=== PATIENT | male | born 1955 | race Caucasian/White ===

== ENCOUNTER 2018-12-12 08:45 | Day surgery (SDC) | payer OTHER, SELFPAY ==
[2018-12-12 09:31] VITALS: BP 155/92; PULSE 95; RESP 15; TEMP 36.8; O2SAT 97; BMI 34.2
[2018-12-12] MEDS: SODIUM CHLORIDE 0.9% 1,000 ML 200 ML IV (09:40)
--- NOTE | 2018-12-12 11:26 | PM.HP.1 ---
History of Present Illness Date Patient Seen: 12/12/18 Time Patient Seen: 11:26 Chief complaint: [id number] SCREENING COLONOSCOPY Narrative: Patient is a gentleman here for screening colonoscopy. His last exam was 5 years ago. He had polyps removed at that time. No history in the family of colon cancer. Patient History Medical History (Updated 12/12/18 @ 11:27 by Elliott Dietrich MD) Elevated cholesterol (Chronic) Essential hypertension with goal blood pressure less than 130/85 (Chronic) Surgical History (Updated 12/12/18 @ 11:27 by Elliott Dietrich MD) Hx laparoscopic cholecystectomy (Resolved) Social History household members: spouse Family & Social History Social History: household members spouse Tobacco & Substance use: Does not smoke and never did Meds Home Medications Medication Instructions Recorded Confirmed Type Aspir-Low 81 mg DAILY 12/12/18 12/12/18 History allopurinol 300 mg DAILY 12/12/18 12/12/18 History atorvastatin 10 mg DAILY 12/12/18 12/12/18 History cetirizine 5 mg PO DAILY 12/12/18 12/12/18 History lisinopril 5 mg DAILY 12/12/18 12/12/18 History Allergies Allergy/AdvReac Type Severity Reaction Status Date / Time shellfish derived Allergy Severe Anaphylaxis Verified 12/12/18 09:17 Sulfa (Sulfonamide AdvReac Mild Hives Verified 12/12/18 09:15 Antibiotics) Review of Systems Review of Systems All systems reviewed & are unremarkable except as noted in HPI and below Constitutional Comments: History of gout. One attack in the distant past Cardiovascular Comments: History of a heart murmur from childhood Exam Vital Signs (past 8 hours): - 12/12/18 09:31 Temperature 98.3 F Pulse Rate 95 H Respiratory Rate 15 Blood Pressure 155/92 H Pulse Oximetry 97 Oxygen Delivery Method Room Air Narrative Exam Narrative: Co Operative a pleasant gentleman in no apparent distress. The neck is supple. Lungs are clear to auscultation without rales or rhonchi. Heart regular rate and rhythm. I do not appreciate a murmur gallop. His abdomen is protuberant soft nontender without mass. He is alert and oriented x3. Assessment & Plan Assessment & Plan narrative: The patient for a screening colonoscopy. I have discussed the procedure with them. Risks of bleeding, perforation which would necessitate major operation, failure to find remove all lesions, the potential tattoo were all discussed. All questions were answered. They wished to proceed.
--- NOTE | 2018-12-12 11:29 | PM.PREOP ---
Pre-operative Note Interval Note History & Physical reviewed/Exam performed by Physician: Yes Changes to H&P: No ASA Class (for procedural sedation): II
[2018-12-12] MEDS: MIDAZOLAM 5 MG/5 ML VIAL IV (11:37)
[2018-12-12] MEDS: fentaNYL 250 MCG/5 ML INJ IV (11:38)
--- NOTE | 2018-12-12 12:17 | PM.OP.ENDO ---
Operative Date/Time/Diagnoses Date of procedure: 12/12/18 Time of procedure: 12:17 Pre-op diagnosis: History of polyps. Last exam 5 years ago. Post-op diagnosis: same (Sigmoid diverticulosis. Large soft prostate) Procedure & Clinicians Study performed: Colonoscopy Same procedure as scheduled: Yes Indications: Screening Surgeon: Elliott Dietrich Procedure Notes SCOAP/Timeout: Performed Procedure in detail: The patient was placed in the left lateral decubitus position and underwent IV sedation directed by the surgeon consisting of fentanyl and Versed. Digital exam was remarkable for a large soft prostate. The scope was inserted and advanced through the rectum into the sigmoid, descending, transverse, and ascending colon. Patient was noted to have sigmoid diverticulosis.. The cecum was reached identified by the ileocecal valve and the appendiceal opening. The scope was gradually brought out. As we came through the left colon there was a noticeable lack of haustra. No Polyps were found. The scope ultimately was retroflexed in the rectum. The appearance was otherwise normal. The scope was removed and the patient tolerated the procedure well. the prep was good. Scope withdrawal time: 15 minutes Sedation minutes: 38 Findings: diverticulosis (Sigmoid) and other findings (Enlarged prostate) Specimen(s): none sent Complications: none Recommendations: Colonscopy in 5 years Follow up: as needed Disposition: PACU
[2018-12-12 12:20] VITALS: BP 112/76; PULSE 80; RESP 16; TEMP 36.6; O2SAT 96
[2018-12-12 12:25] VITALS: BP 107/73; PULSE 78; RESP 14; O2SAT 95
[2018-12-12 12:30] VITALS: BP 112/69; PULSE 80; RESP 12; O2SAT 96
[2018-12-12 12:38] VITALS: BP 113/74; PULSE 85; RESP 12; TEMP 36.9; O2SAT 94
[2018-12-12 12:48] VITALS: BP 117/79; PULSE 78; RESP 15; TEMP 36.4; O2SAT 95
--- NOTE | 2018-12-12 13:00 | SUR.PHASEII ---
brought in, d/c instructions discussed, both voiced an understanding. pt dressed with assist from and left when ready and in stable condition.
== END 2018-12-12 13:01 | disposition home or self-care (01) ==
PROVIDERS: PCP Internal Medicine; Visit Provider Specialist
PROC: 0DJD8ZZ Inspection of Lower Intestinal Tract, Via Natural or Artificial Opening Endoscopic (ICD-10-PCS; CPT 45378; principal; 2018-12-12 10:45)
DX: Z86.010 Personal history of colon polyps (principal); K57.30 Diverticulosis of large intestine without perforation or abscess without bleeding; N40.0 Benign prostatic hyperplasia without lower urinary tract symptoms; E78.00 Pure hypercholesterolemia, unspecified; I10 Essential (primary) hypertension
CPT/HCPCS: 45378; 99152; 99153; J2250; J3010

== ENCOUNTER → 2019-06-26 09:15 | Outpatient (CLI) | payer MEDICARE, OTHER, SELFPAY ==
--- NOTE | 2019-06-26 | DI.CT.S_ITS ---
PROCEDURE: CT SINUS SCREEN WO CON INDICATIONS: Chronic sinusitis, unspecified TECHNIQUE: Noncontrast 3.0 mm axial images acquired from the frontal sinuses to the mid-sella, with coronal and sagittal reformats. For radiation dose reduction, the following was used: automated exposure control, adjustment of mA and/or kV according to patient size. COMPARISON: None. FINDINGS: Image quality: Excellent. Maxillary Sinuses: No bony remodeling or destruction. Sinuses are clear. Ethmoid Air Cells: No bony remodeling or destruction. Sinuses are clear. Sphenoid Sinuses: No bony remodeling or destruction. Sinuses are clear. Frontal Sinuses: No bony remodeling or destruction. Sinuses are clear. Ostiomeatal Complexes: Ostiomeatal complexes are patent. No Ivy cells. Miscellaneous: Visualized intra-orbital contents are normal. No faizan bullosa or paradoxical turbinate curvature. There is mild leftward nasal septal deviation. IMPRESSION: No significant active paranasal sinus disease is seen. Mild leftward nasal septal deviation. Dictated by: Benson Sigala M.D. on 06/26/2019 at 9:23 Approved by: Benson Sigala M.D. on 06/26/2019 at 9:25
== END ==
PROVIDERS: PCP Internal Medicine; Visit Provider Internal Medicine
DX: J32.9 Chronic sinusitis, unspecified (principal); J34.2 Deviated nasal septum
CPT/HCPCS: 70486

== ENCOUNTER → 2020-01-30 10:59 | Outpatient (CLI) | payer MEDICARE, OTHER, SELFPAY ==
[2020-01-30 12:21] LABS: Alanine Aminotransferase 52 IU/L (<50); Albumin Globulin Ratio 2.1 (1.0-2.8); Alkaline Phosphatase 64 U/L (38-126); Aspartate Aminotransferase 40 IU/L (17-59); BUN Creatinine Ratio 14.7 (6-22); Bilirubin Total 0.7 mg/dL (0.2-1.3); Blood Urea Nitrogen 10 mg/dL (9-20); Calcium 10.5 mg/dL (8.4-10.2); Carbon Dioxide 29 mmol/L (22-32); Chloride 102 mmol/L (98-107); Cholesterol 152 mg/dL (140-199); Estimated Glomerular Filt Rate > 60.0 mL/min (>60); Globulin 2.4 g/dL (1.7-4.1); Glucose 97 mg/dL (80-110); HDL Cholesterol 44 mg/dL (40-60); HEMOLYSIS < 15 (0-50); LDL Cholesterol Calculated 67 mg/dL (<100); Sodium 139 mmol/L (137-145); Total Protein 7.4 g/dL (6.3-8.2); Triglycerides 203 mg/dL (35-150); Uric Acid 3.8 mg/dL (3.5-8.5)
[2020-01-30 12:22] LABS: Potassium 5.4 mmol/L (3.4-5.1)
== END ==
PROVIDERS: PCP Internal Medicine; Referring Provider Internal Medicine; Visit Provider Internal Medicine
DX: Z12.5 Encounter for screening for malignant neoplasm of prostate (principal); I10 Essential (primary) hypertension; E78.5 Hyperlipidemia, unspecified; M1A.40X0 Other secondary chronic gout, unspecified site, without tophus (tophi)
CPT/HCPCS: 36415; 80053; 80061; 84153; 84154; 84550

== ENCOUNTER 2024-01-17 07:07 | Day surgery (SDC) | payer MEDICARE, SELFPAY ==
[2024-01-17 07:55] VITALS: BP 152/85; PULSE 83; RESP 17; TEMP 36.5; O2SAT 96
[2024-01-17] MEDS: LACTATED RINGERS 1,000 ML 42 ML IV (08:03)
--- NOTE | 2024-01-17 08:12 | PM.HP.1 ---
History of Present Illness History of Present Illness Date Patient Seen: 01/17/24 Time Patient Seen: 08:12 Chief complaint: Screening Colonoscopy Narrative: Rylan is a 68-year-old man here for screening colonoscopy. Personal history of colonic polyps and diverticulosis. Last colonoscopy 5 years ago. No family history of intestinal malignancy first-degree relatives. No abdominal concerns today. [facility] Medical History Elevated cholesterol Essential hypertension with goal blood pressure less than 130/85 Surgical History Hx laparoscopic cholecystectomy Social History household members: spouse Smoking Status: Never smoker alcohol intake: current Meds Home Medications and Allergies Home Medications Medication Instructions Recorded Confirmed Type cetirizine 10 mg tablet 5 mg PO DAILY 12/12/18 01/17/24 History lisinopril 5 mg DAILY 12/12/18 12/13/18 History allopurinol 300 mg tablet 300 mg PO DAILY 01/17/24 01/17/24 History atorvastatin 10 mg tablet 10 mg PO DAILY 01/17/24 01/17/24 History cholecalciferol (vitamin D3) 25 25 mcg PO DAILY 01/17/24 01/17/24 History mcg (1,000 unit) chewable tablet (Vitamin D3) lisinopril 5 mg tablet 5 mg PO DAILY 01/17/24 01/17/24 History melatonin 3 mg tablet 3 mg PO BEDTIME PRN Insomnia 01/17/24 01/17/24 History multivitamin 1 tab PO DAILY 01/17/24 01/17/24 History turmeric 400 mg capsule 500 mg PO DAILY 01/17/24 01/17/24 History Allergies Allergy/AdvReac Type Severity Reaction Status Date / Time shellfish derived Allergy Severe Anaphylaxis Verified 12/13/18 13:11 fentanyl AdvReac Intermediate Severe Verified 12/13/18 17:47 nausea lasting over 24 hours Sulfa (Sulfonamide AdvReac Mild Hives Verified 12/13/18 13:11 Antibiotics) Exam Vital Signs (past 8 hours): - 01/17/24 07:55 Temperature 97.7 F Pulse Rate 83 Respiratory Rate 17 Blood Pressure 152/85 H Pulse Oximetry 96 Oxygen Delivery Method Room Air Oxygen Delivery Method Room Air Narrative Exam Narrative: General adult man alert oriented no acute distress Chest nonlabored respiration Extremities warm well perfused Assessment & Plan Assessment & Plan narrative: The patient requires colorectal screening and colonoscopy is recommended. Technical details were discussed. Risks, benefits, alternatives explained. Risks including but not limited to myocardial infarction, aspiration, bleeding, pain, missed lesion, incomplete examination, need for further radiographic studies, intestinal injury, and need for major abdominal surgery were discussed. All questions were answered to their satisfaction, and they are in agreement with this plan.
[2024-01-17 08:40] VITALS: BP 123/80; PULSE 70; RESP 20; TEMP 36.5; O2SAT 96
[2024-01-17 08:45] VITALS: BP 105/57; PULSE 73; RESP 16; O2SAT 96
[2024-01-17 08:50] VITALS: BP 111/79; PULSE 69; RESP 15; O2SAT 94
[2024-01-17 09:00] VITALS: BP 120/77; PULSE 63; RESP 20; O2SAT 95
--- NOTE | 2024-01-17 09:12 | P.OP.COLON_ITS ---
Operative Date/Time/Diagnoses Date of procedure: 01/17/24 Time of procedure: 09:12 Pre-op diagnosis: Personal history of colonic Procedure & Clinicians Study performed: Screening colonoscopy Same procedure as scheduled: Yes Indications: Personal history of colonic Surgeon: Gerardo Tsang Procedure Notes Procedure in detail: The history and physical was performed/updated and the patient is ASA class is 2. The procedure was discussed in detail with the patient. Potential risks complications including infection, bleeding, missed diagnosis, perforation, need for surgery, and were explained. Their questions were answered and informed consent was obtained. Patient was brought to the procedure room and placed standard monitoring equipment. The patient's vital signs were monitored continuously throughout the entire procedure. Prior to starting time-out was performed. The patient was placed in the left lateral recumbent position. Procedural sedation was administered by anesthesia. Examination began with a thorough inspection of the perianal area there was no evidence of fissures, fistulae, external hemorrhoids or cutaneous malignancy. The colonoscopy scope was then placed into the anal canal and was advanced to the cecum, which was identified by the ileocecal valve, the appendiceal orifice and the confluence of the taenia. The scope was then slowly withdrawn examining colon thoroughly in all directions, irrigating it of any residual stool. The scope was retroflexed within the rectum The patient tolerated the procedure well. They will be discharged once criteria are met. The prep was of good/excellent quality. The withdrawl time was 7 minutes. FINDINGS * No polyps * Sigmoid diverticulosis Specimen(s): none sent Impression: Diverticulosis Post-procedure Recommendations: Colonoscopy in 5 years and High fiber diet Disposition: same day surgery
== END 2024-01-17 09:15 | disposition home or self-care (01) ==
PROVIDERS: PCP Internal Medicine; Referring Provider Surgery; Visit Provider Surgery
PROC: 0DJD8ZZ Inspection of Lower Intestinal Tract, Via Natural or Artificial Opening Endoscopic (ICD-10-PCS; CPT 45378; principal; 2024-01-17 08:15)
DX: Z12.11 Encounter for screening for malignant neoplasm of colon (principal); Z86.010 Personal history of colon polyps; K57.30 Diverticulosis of large intestine without perforation or abscess without bleeding
CPT/HCPCS: G0105; J2704

== ENCOUNTER → 2024-02-25 11:19 | Outpatient (CLI) | payer MEDICARE, SELFPAY ==
[2024-02-25 12:06] LABS: Influenza A - CEPHEID Flu A NEGATIVE (NEGATIVE); Influenza B - CEPHEID Flu B NEGATIVE (NEGATIVE); Respiratory Syncytial Virus Negative (Negative)
[2024-02-25 12:09] LABS: COVID-19 CEPHEID 4-PLEX PCR Negative (Negative)
== END ==
PROVIDERS: PCP Internal Medicine; Visit Provider Physician Assistant
DX: R05.1 Acute cough (principal)
CPT/HCPCS: 0241U

== ENCOUNTER → 2024-09-25 13:27 | Outpatient (CLI) | payer MEDICARE, SELFPAY ==
--- NOTE | 2024-09-25 13:29 | DI.MRI.S_ITS ---
PROCEDURE: MR FEMUR RT WO CON INDICATIONS: RT HAMSTRING INJURY,SEQUELA TECHNIQUE: Noncontrast coronal and sagittal T1 spin echo and STIR; axial T1 spin echo and T2 fast spin echo with fat saturation through the right femur. COMPARISON: None. FINDINGS: Image quality: Excellent. Bones: No acute trabecular bone injury or fracture. High-grade cartilage loss is seen in the superior right hip with subchondral cystic changes and edema and a small right hip effusion. No suspicious intraosseous lesion. Soft tissues: Chronic low-grade partial intrasubstance tearing of the right hamstring tendons at the origin superimposed on chronic tendinosis. Mild distal right gluteus medius and minimus tendinosis. The visualized musculature is age-appropriate in signal intensity and bulk. No significant right knee effusion or popliteal cyst. Prostate appears enlarged. IMPRESSION: 1. Low-grade partial tearing of the right hamstring tendon origin superimposed on chronic tendinosis. 2. Mild distal right gluteus medius and minimus tendinosis. 3. Moderate to severe right hip osteoarthrosis. Small right hip effusion. Approved by: Bi Dominguez M.D. on 09/27/2024 at 9:16
== END ==
LOC: MRI 13:28
PROVIDERS: PCP Internal Medicine; Referring Provider Internal Medicine; Visit Provider Internal Medicine
DX: S76.301S Unspecified injury of muscle, fascia and tendon of the posterior muscle group at thigh level, right thigh, sequela (principal); M16.11 Unilateral primary osteoarthritis, right hip; M25.451 Effusion, right hip; X58.XXXS Exposure to other specified factors, sequela
CPT/HCPCS: 73718

== ENCOUNTER → 2025-05-28 08:38 | Outpatient (CLI) | payer MEDICARE, SELFPAY | PROVIDERS: PCP Internal Medicine; Visit Provider Nurse Practitioner Family | DX: J02.9 Acute pharyngitis, unspecified (principal) | CPT/HCPCS: 87070 ==

== ENCOUNTER → 2025-06-18 10:37 | Outpatient (CLI) | payer MEDICARE, SELFPAY ==
--- NOTE | 2025-06-18 10:38 | EKG_ITS ---
[facility] [address], [place] [address] Test Date: 2025-06-18 Pat Name: Ty Fox Department: [facility] Room: Gender: Male Communication Manager: : 1955 Requested By: Order Number: [id number] Reading MD: Lewis Lundberg MD Measurements Intervals [place] Rate: 73 P: 55 ME: 190 QRS: 10 QRSD: 92 T: 30 QT: 380 QTc: 418 Interpretive Statements Normal sinus rhythm Electronically Signed On 06-18-2025 12:01:33 PST by Lewis Lundberg MD
== END ==
PROVIDERS: PCP Internal Medicine; Referring Provider Orthopaedic Surgery; Visit Provider Orthopaedic Surgery
DX: Z01.818 Encounter for other preprocedural examination (principal)
CPT/HCPCS: 93005